=== PATIENT | male | born 1970 | race Caucasian/White ===

== ENCOUNTER 2018-06-30 23:30 | Emergency (ER) | payer OTHER, MEDICAID ==
[~2018-06-30] VITALS: Ht 170.2 cm; Wt 81.6 kg
[2018-06-30 23:35] VITALS: Ht 170.2 cm; Wt 81.6 kg
[2018-07-01 02:11] VITALS: BP 120/67
== END 2018-07-01 02:11 | disposition home or self-care (01) ==
LOC: ED 23:30
DX: M79.651 Pain in right thigh (principal)
CPT/HCPCS: J1885; Q0092